=== PATIENT | male | born 1975 | race Two or more races ===

== ENCOUNTER 2020-01-08 09:05 | Emergency (ER) | payer OTHER ==
[~2020-01-08] VITALS: Ht 180.3 cm; Wt 86.0 kg
[2020-01-08 09:09] VITALS: BP 144/45
--- NOTE | 2020-01-08 09:19 | NUR ---
PT HERE WITH C/O LEFT POINTER FINGER LAC. 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
[2020-01-08] MEDS ORDERED: LIDOCAINE-MPF 1%, 5ML ONE (09:39)
[2020-01-08] MEDS ORDERED: DIPH,PERTUSS(ACELL),TET VAC/PF 0.5 ML IM-VACC ONE ×2 (09:41→10:00)
--- NOTE | 2020-01-08 09:43 | NUR ---
PA AT BEDSIDE FOR BLOCK. PT GIVEN TETANUS SHOT PER REQUEST.
[2020-01-08] MEDS ORDERED: LIDOCAINE-MPF 1%, 5ML INFIL ONE (10:00)
--- NOTE | 2020-01-08 10:06 | NUR ---
TECH AT BEDSIDE FOR CLEANING.
--- NOTE | 2020-01-08 10:17 | NUR ---
Patient/Caregiver given discharge instructions and they have confirmed that they understand the instructions. Patient ambulatory with steady gait.
== END 2020-01-08 10:22 | disposition home or self-care (01) ==
LOC: ED 09:30
DX: S61.211A Laceration without foreign body of left index finger without damage to nail, initial encounter (principal); W26.9XXA Contact with unspecified sharp object(s), initial encounter; Y93.89 Activity, other specified; Y92.410 Unspecified street and highway as the place of occurrence of the external cause; Y99.8 Other external cause status
CPT/HCPCS: 12041; 90471; 90715